=== PATIENT | male | born 1995 | race Caucasian/White ===

== ENCOUNTER 2017-07-14 18:53 | Emergency (ER) | payer MEDICAID ==
[2017-07-14 22:06] LABS: BASOPHIL % 0.4 % (0-2); PLATELET COUNT 329 x10^3mcL (130-400); RED CELL DISTRIBUTION WIDTH 13.1 % (11.5-14.5)
[2017-07-14 22:28] LABS: CALCIUM 8.9 mg/dL (8.5-10.1); CARBON DIOXIDE 29.3 mmol/L (21-32); CHLORIDE SERUM 106 mmol/L (98-107); CREATININE SERUM 0.8 mg/dL (0.7-1.3); GFR1 > 60 mL/min; GLUCOSE SERUM 94 mg/dL (74-106); POTASSIUM SERUM 3.8 mmol/L (3.5-5.1); SODIUM SERUM 142 mmol/L (136-145)
[2017-07-14 23:24] VITALS: BP 103/51
[2017-07-14 23:42] LABS: UA SPECIFIC GRAVITY 1.025 (1.005-1.035); microscopic required? YES; urine erythrocyte 2+ (NEGATIVE)
[2017-07-16 04:11] LABS: RAPID PLASMA REAGIN Non Reactive (Non Reactive)
== END 2017-07-14 23:24 | disposition home or self-care (01) ==
LOC: ED 18:53
PROVIDERS: Emergency Medicine
DX: N47.6 Balanoposthitis (principal)
CPT/HCPCS: 36415

== ENCOUNTER 2017-07-18 14:42 | Emergency (ER) | payer MEDICAID ==
[~2017-07-18] VITALS: Ht 177.8 cm; Wt 72.6 kg
[2017-07-18 14:45] VITALS: Ht 177.8 cm; Wt 72.6 kg
[2017-07-18 17:36] VITALS: BP 110/72
== END 2017-07-18 17:36 | disposition home or self-care (01) ==
LOC: ED 14:42
DX: N48.89 Other specified disorders of penis (principal)